=== PATIENT | male | born 1945 | race Caucasian/White ===

== ENCOUNTER 2017-03-13 09:03 | Emergency (ER) | payer MEDICARE, OTHER ==
[2017-03-13 09:13] VITALS: BP 156/80
--- NOTE | 2017-03-13 10:07 | XRAY Preliminary Report ---
Exam: XR WRIST 4 VIEW LT IMPRESSION: 1. Triquetral fracture with adjacent soft tissue swelling. 2. First carpometacarpal joint degenerative changes. [facility] SITE ID: [id number]
--- NOTE | 2017-03-13 10:09 | XRAY Report ---
EXAM: LEFT WRIST RADIOGRAPHY EXAM DATE: 03/13/2017 09:35 AM. CLINICAL HISTORY: Dorsal pain / fall 2 days ago. COMPARISON: None. TECHNIQUE: 4 views. FINDINGS: Bones: Triquetral fracture. Joints: Narrowing of first carpometacarpal joint space with marginal osteophytes. Soft Tissues: Dorsal soft tissue swelling. IMPRESSION: 1. Triquetral fracture with adjacent soft tissue swelling. 2. First carpometacarpal joint degenerative changes. [facility] Referring Provider Line: [phone] SITE ID: [id number]
--- NOTE | 2017-03-13 10:23 | ED Physician Documentation ---
PD HPI UPPER EXT INJURY - Stated complaint Stated Complaint: GLF/HAND PX - Chief complaint Chief Complaint: Ext Problem - History obtained from History obtained from: Patient, Family - History of Present Illness Location: Left, Wrist Type of injury: Fall Where injury occurred: Home Timing - onset: How many days ago (3) Timing - duration: Days (3) Timing - details: Abrupt onset, Still present Improved by: Rest, Immobilization Worsened by: Moving, Palpating Associated symptoms: Swelling. No: Weakness, Numbness, Tingling Contributing factors: Anticoagulated Similar symptoms before: Has not had sx before Recently seen: Not recently seen - Additonal information Additional information: 71-year-old male is visiting his daughter here from [place] and he had a fall 3 days ago onto his outstretched left hand. He did get his elbow into his ribs on that side he did not hit his head he is on Coumadin he did not have loss of consciousness and denies any dizziness nausea or trouble concentrating. He does have increased pain and swelling in his wrist and reduced range of motion. He has been having some difficulty sleeping at night. Review of Systems Constitutional: denies: Fever Respiratory: denies: Cough GI: denies: Vomiting Musculoskeletal: reports: Extremity pain, Joint pain, Extremity swelling, Joint swelling. denies: Neck pain, Back pain Neurologic: denies: Generalized weakness, Focal weakness, Numbness, Difficulty speaking, Confused, Altered mental status, Headache, Head injury, LOC PD PAST MEDICAL HISTORY - Present Medications Home Medications: Ambulatory Orders Medication Instructions Recorded Confirmed HYDROcod/ACETAM 5/325 [[place] 5/325] 1 - 2 ea PO Q6H PRN #15 tablet 03/13/17 Warfarin [Coumadin] 03/13/17 - Allergies Allergies/Adverse Reactions: Allergies Allergy/AdvReac Type Severity Reaction Status Date / Time No Known Drug Allergies Allergy Verified 03/13/17 09:10 - Social History Does the pt smoke?: No Smoking Status: Never smoker PD ED PE NORMAL - Vitals Vital signs reviewed: Yes (Hypertensive) - General General: Alert and oriented X 3, No acute distress, Well developed/nourished - HEENT HEENT: Atraumatic, PERRL, EOMI - Neck Neck: Supple, no meningeal sign - Respiratory Respiratory: No respiratory distress, Other (No significant chest wall tenderness.) - Back Back: No CVA TTP, No spinal TTP - Derm Derm: Normal color, Warm and dry, No rash - Extremities Extremities: Other (There is swelling to the left wrist over the dorsum of the wrist. There is pain to palpation of the anatomic snuffbox and pain over this area with flexion extension of the wrist.) - Neuro Neuro: No motor deficit, No sensory deficit Eye Opening: Spontaneous Motor: Obeys Commands Verbal: Oriented GCS Score: 15 - Psych Psych: Normal mood, Normal affect Results - Vitals Vitals: Vital Signs - 24 hr 03/13/17 09:08 Temperature 36.1 C L Heart Rate 61 Respiratory 16 Rate Blood Pressure 156/80 H O2 Saturation 99 Oxygen O2 Source Room air - Rads (name of study) Left wrist Radiology: Prelim report reviewed (Impression: 1. Triquetral fracture with adjacent soft tissue swelling. 2. First carpometacarpal joint degenerative changes.), EMP read indepedently, See rad report Procedures - Splint (location) wrist Splint applied by: Tech Type of splint: Fiberglass, Volar cock up Other: Patient tolerated well, No complications, Neurovascular intact, Good alignment PD MEDICAL DECISION MAKING - ED course Complexity details: reviewed results, re-evaluated patient, considered differential, d/w patient, d/w family ED course: 71-year-old male with a fall onto his left hand has a triquetral fracture. He is placed into a splint will follow-up at orthopedics. Departure - Departure Disposition: 01 Home, Self Care Clinical Impression: Left wrist fracture Qualifiers: Encounter type: initial encounter Fracture type: closed Qualified Code(s): S62.102A - Fracture of unspecified carpal bone, left wrist, initial encounter for closed fracture Condition: Stable Instructions: ED Fx Wrist General Follow-Up: [facility] [Provider Group] Prescriptions: HYDROcod/ACETAM 5/325 [[place] 5/325] 1 - 2 ea PO Q6H PRN #15 tablet PRN Reason: Pain
== END 2017-03-13 10:51 | disposition home or self-care (01) ==
LOC: ED 09:03
DX: S62.102A Fracture of unspecified carpal bone, left wrist, initial encounter for closed fracture (principal); W18.30XA Fall on same level, unspecified, initial encounter; Y92.009 Unspecified place in unspecified non-institutional (private) residence as the place of occurrence of the external cause; Z79.01 Long term (current) use of anticoagulants
CPT/HCPCS: 29125; 99283

== ENCOUNTER 2020-08-01 11:04 | Outpatient (CLI) | payer MEDICARE, OTHER ==
[2020-08-01 19:50] LABS: INR 3.1 (0.8-1.2); PT - PROTHROMBIN TIME 32.4 secs (9.9-12.6)
== END 2020-08-01 11:05 | disposition home or self-care (01) ==
LOC: LAB.N 11:04
PROVIDERS: ATTEND Pharmacist
DX: Z79.01 Long term (current) use of anticoagulants (principal); I48.0 Paroxysmal atrial fibrillation; I48.92 Unspecified atrial flutter
CPT/HCPCS: 36415; 85610

== ENCOUNTER 2020-08-22 12:04 | Outpatient (CLI) | payer MEDICARE, OTHER | END 2020-08-22 12:05 | disposition home or self-care (01) | LOC: LAB.N 12:04 | PROVIDERS: ATTEND Internal Medicine | DX: I48.0 Paroxysmal atrial fibrillation (principal); I48.92 Unspecified atrial flutter; Z79.01 Long term (current) use of anticoagulants | CPT/HCPCS: 85610 ==

== ENCOUNTER 2020-09-19 09:22 | Outpatient (CLI) | payer MEDICARE, OTHER | END 2020-09-19 09:23 | disposition home or self-care (01) | LOC: LAB.N 09:22 | PROVIDERS: ATTEND Internal Medicine | DX: I48.0 Paroxysmal atrial fibrillation (principal); Z79.01 Long term (current) use of anticoagulants; I48.92 Unspecified atrial flutter | CPT/HCPCS: 36416; 85610 ==

== ENCOUNTER 2020-10-17 12:24 | Outpatient (CLI) | payer MEDICARE, OTHER | END 2020-10-17 12:25 | disposition home or self-care (01) | LOC: LAB.N 12:24 | PROVIDERS: ATTEND Pharmacist | DX: Z79.01 Long term (current) use of anticoagulants (principal); I48.0 Paroxysmal atrial fibrillation; I48.92 Unspecified atrial flutter | CPT/HCPCS: 36416; 85610 ==

== ENCOUNTER 2020-11-14 14:43 | Outpatient (CLI) | payer MEDICARE, OTHER | END 2020-11-14 14:44 | disposition home or self-care (01) | LOC: LAB.N 14:43 | PROVIDERS: ATTEND Pharmacist | DX: Z79.01 Long term (current) use of anticoagulants (principal); I48.0 Paroxysmal atrial fibrillation; I48.92 Unspecified atrial flutter | CPT/HCPCS: 36416; 85610 ==

== ENCOUNTER 2021-01-03 09:40 | Outpatient (CLI) | payer MEDICARE, OTHER | END 2021-01-03 23:59 | disposition home or self-care (01) | LOC: LAB.N 09:40 | PROVIDERS: ATTEND Pharmacist | DX: Z79.01 Long term (current) use of anticoagulants (principal); I48.92 Unspecified atrial flutter; I48.0 Paroxysmal atrial fibrillation | CPT/HCPCS: 85610 ==

== ENCOUNTER 2021-01-04 08:57 | Outpatient (CLI) | payer MEDICARE, OTHER ==
[2021-01-04 12:04] LABS: ALBUMIN 3.7 g/dL (3.2-5.5); CALCIUM 9.7 mg/dL (8.5-10.3); CREATININE 1.2 mg/dL (0.6-1.2); PHOSPHORUS 3.6 mg/dL (2.5-4.6); POTASSIUM 4.7 mmol/L (3.5-5.0)
== END 2021-01-04 08:58 | disposition home or self-care (01) ==
LOC: LAB.N 08:57
PROVIDERS: ATTEND Internal Medicine
DX: R80.9 Proteinuria, unspecified (principal)
CPT/HCPCS: 36415; 80069

== ENCOUNTER 2021-01-24 09:23 | Outpatient (CLI) | payer MEDICARE, OTHER | END 2021-01-24 09:24 | disposition home or self-care (01) | LOC: LAB.N 09:23 | PROVIDERS: ATTEND Pharmacist | DX: Z79.01 Long term (current) use of anticoagulants (principal); I48.0 Paroxysmal atrial fibrillation; I48.92 Unspecified atrial flutter | CPT/HCPCS: 36416; 85610 ==

== ENCOUNTER 2021-02-21 09:56 | Outpatient (CLI) | payer MEDICARE, OTHER | END 2021-02-21 09:57 | disposition home or self-care (01) | LOC: LAB.N 09:56 | PROVIDERS: ATTEND Pharmacist | DX: Z79.01 Long term (current) use of anticoagulants (principal); I48.0 Paroxysmal atrial fibrillation; I48.92 Unspecified atrial flutter | CPT/HCPCS: 36416; 85610 ==

== ENCOUNTER 2021-05-02 11:41 | Outpatient (CLI) | payer MEDICARE, OTHER | END 2021-05-02 11:42 | disposition home or self-care (01) | LOC: LAB.N 11:41 | PROVIDERS: ATTEND Pharmacist | DX: Z79.01 Long term (current) use of anticoagulants (principal); I48.0 Paroxysmal atrial fibrillation; I48.92 Unspecified atrial flutter | CPT/HCPCS: 36416; 85610 ==

== ENCOUNTER 2021-07-04 10:13 | Outpatient (CLI) | payer MEDICARE, OTHER | END 2021-07-04 10:14 | disposition home or self-care (01) | LOC: LAB.N 10:13 | PROVIDERS: ATTEND Pharmacist | DX: I48.0 Paroxysmal atrial fibrillation (principal); I48.92 Unspecified atrial flutter; Z79.01 Long term (current) use of anticoagulants | CPT/HCPCS: 36416; 85610 ==

== ENCOUNTER 2021-08-29 10:47 | Outpatient (CLI) | payer MEDICARE, OTHER | END 2021-08-29 10:48 | disposition home or self-care (01) | LOC: LAB.N 10:47 | PROVIDERS: ATTEND Pharmacist | DX: Z79.01 Long term (current) use of anticoagulants (principal); I48.0 Paroxysmal atrial fibrillation; I48.92 Unspecified atrial flutter | CPT/HCPCS: 36416; 85610 ==

== ENCOUNTER 2021-09-22 15:10 | Outpatient (CLI) | payer MEDICARE, OTHER | END 2021-09-22 15:11 | disposition home or self-care (01) | LOC: LAB.N 15:10 | PROVIDERS: ATTEND Pharmacist | DX: Z79.01 Long term (current) use of anticoagulants (principal); I48.0 Paroxysmal atrial fibrillation; I48.92 Unspecified atrial flutter | CPT/HCPCS: 36416; 85610 ==

== ENCOUNTER 2021-10-06 08:00 | Outpatient (CLI) | payer MEDICARE, OTHER | END 2021-10-06 23:59 | disposition home or self-care (01) | LOC: LAB.N 08:00 | PROVIDERS: ATTEND Pharmacist | DX: I48.0 Paroxysmal atrial fibrillation (principal); I48.92 Unspecified atrial flutter; Z79.01 Long term (current) use of anticoagulants | CPT/HCPCS: 36416; 85610 ==

== ENCOUNTER 2021-10-27 09:24 | Outpatient (CLI) | payer MEDICARE, OTHER | END 2021-10-27 09:25 | disposition home or self-care (01) | LOC: LAB.N 09:24 | PROVIDERS: ATTEND Pharmacist | DX: I48.0 Paroxysmal atrial fibrillation (principal); I48.92 Unspecified atrial flutter; Z79.01 Long term (current) use of anticoagulants | CPT/HCPCS: 36416; 85610 ==

== ENCOUNTER 2022-02-01 12:17 | Outpatient (CLI) | payer MEDICARE, OTHER | END 2022-02-01 12:18 | disposition home or self-care (01) | LOC: LAB.N 12:17 | PROVIDERS: ATTEND Internal Medicine | DX: Z79.01 Long term (current) use of anticoagulants (principal); I48.0 Paroxysmal atrial fibrillation; I48.92 Unspecified atrial flutter | CPT/HCPCS: 85610 ==

== ENCOUNTER 2022-03-16 11:15 | Outpatient (CLI) | payer MEDICARE, OTHER | END 2022-03-16 11:16 | disposition home or self-care (01) | LOC: LAB.N 11:15 | PROVIDERS: ATTEND Pharmacist | DX: Z79.01 Long term (current) use of anticoagulants (principal); I48.0 Paroxysmal atrial fibrillation; I48.92 Unspecified atrial flutter | CPT/HCPCS: 36416; 85610 ==

== ENCOUNTER 2022-04-26 08:00 | Outpatient (CLI) | payer MEDICARE, OTHER | END 2022-04-26 23:59 | disposition home or self-care (01) | LOC: LAB.N 08:00 | PROVIDERS: ATTEND Pharmacist | DX: Z79.01 Long term (current) use of anticoagulants (principal); I48.0 Paroxysmal atrial fibrillation; I48.92 Unspecified atrial flutter | CPT/HCPCS: 36416; 85610 ==

== ENCOUNTER 2022-05-21 12:10 | Outpatient (CLI) | payer MEDICARE, OTHER | END 2022-05-21 12:11 | disposition home or self-care (01) | LOC: LAB.N 12:10 | PROVIDERS: ATTEND Pharmacist | DX: Z79.01 Long term (current) use of anticoagulants (principal); I48.0 Paroxysmal atrial fibrillation; I48.92 Unspecified atrial flutter | CPT/HCPCS: 36416; 85610 ==

== ENCOUNTER 2022-07-28 09:30 | Emergency (ER) | payer MEDICARE, OTHER ==
--- NOTE | 2022-07-28 09:35 | ED Physician Documentation ---
PD HPI URI - Stated complaint Stated Complaint: SOA/COUGH/BODY PX - History obtained from History obtained from: Patient - History of Present Illness Timing - onset: How many days ago (5 days of marked fatigue, aches, cough and dypsnea/wheeze. Poor appetite. Had started with mild symptoms the day or two prior. he flew home from [facility], was on tour group (mostly bus) with for [address] [place] [facility].) Timing duration: Days (5-7) Timing details: Abrupt onset, Still present Associated symptoms: Fever, Chills, Nasal congestion, Productive cough, Dyspnea, Bilateral edema (did note bilateral legs edema while on trip, he presumed from the increased salt in diet and legs downward in plane and bus. He states he has lost most of the edema since returning to home over the past several days. but has still had increased dyspnea and cough.). No: Sore throat, Chest pain, NVD Contributing factors: Travel. No: Sick contact (his is not sick), Unimmunized Improves by: No: Rest Worsened by: Activity Similar symptoms before: Has not had sx before Review of Systems Constitutional: reports: Fever (initial 2 days), Chills, Myalgias (difusely), Fatigue Nose: reports: Rhinorrhea / runny nose, Congestion Throat: denies: Sore throat Cardiac: reports: Pedal edema. denies: Chest pain / pressure, Palpitations, Calf pain Respiratory: reports: Dyspnea, Cough, Wheezing GI: reports: Nausea. denies: Abdominal Pain, Vomiting, Constipation, Diarrhea : reports: Frequency. denies: Dysuria PD PAST MEDICAL HISTORY - Past Medical History Cardiovascular: Arrhythmia Respiratory: COPD Neuro: None Endocrine/Autoimmune: None GI: None Musculoskeletal: Gout - Past Surgical History Cardiovascular: Pacemaker - Present Medications Home Medications: Ambulatory Orders Medication Instructions Recorded Confirmed Albuterol Sulf [Ventolin Hfa 2 - 3 puffs INH Q4HR PRN #1 each 07/28/22 Inhaler] Amox/Clav 875/125 [Augmentin] 1 each PO BID #10 tablet 07/28/22 Ascorbic Acid [Vitamin C] 500 mg ORAL QPM 07/28/22 07/28/22 Aspirin Chewable [[place] 81 mg PO DAILY 07/28/22 07/28/22 Aspirin] Benzonatate [Tessalon] 100 mg PO TID PRN #20 cap 07/28/22 Cholecalciferol [Vitamin D3] 1,000 unit PO DAILY 07/28/22 07/28/22 Cyanocobalamin [Vitamin B-12] 500 mcg PO DAILY 07/28/22 07/28/22 Empagliflozin [Jardiance] 10 mg PO DAILY 07/28/22 07/28/22 Ferrous Sulfate [Feosol] 325 mg PO DAILY 07/28/22 07/28/22 Furosemide [Lasix] 20 mg PO BID 07/28/22 07/28/22 Insulin Degludec [Tresiba 70 units SQ DAILY 07/28/22 07/28/22 Flextouch U-200] Inulin/Cholecalciferol (D3) [Fiber 2 each PO DAILY 07/28/22 07/28/22 Gummies-Vitamin D3] Levothyroxine [Synthroid] 200 mcg PO QDAC 07/28/22 07/28/22 Liraglutide [Victoza 2-Stevie] 1.8 mg SQ QPM 07/28/22 07/28/22 Multivit-Min/FA/Lycopen/Lutein 1 each PO DAILY 07/28/22 07/28/22 [Centrum Silver Men Tablet] [place]-3S/Dha/Epa/Fish Oil/D3 1 each PO BID 07/28/22 07/28/22 [Ogmpq-9-Jdaf Oil-Vit D3 Sftgl] Rosuvastatin Calcium [Crestor] 40 mg PO QPM 07/28/22 07/28/22 Semaglutide [Ozempic] 1 mg SQ ONCE 07/28/22 07/28/22 Sotalol HCl [Betapace AF] 160 mg PO DAILY 07/28/22 07/28/22 Tamsulosin [Flomax] 0.4 mg PO DAILY 07/28/22 07/28/22 Tiotropium [place] [Spiriva] 1 puffs INH DAILY 07/28/22 07/28/22 Ubidecarenone [Coenzyme Q10] 300 mg PO DAILY 07/28/22 07/28/22 Varenicline Tartrate 1 mg PO BID 07/28/22 07/28/22 Warfarin [Coumadin] 2.5 mg PO DAILY 07/28/22 07/28/22 Warfarin [Coumadin] 5 mg PO DAILY 07/28/22 07/28/22 acetaZOLAMIDE [Acetazolamide] 125 mg PO BID 07/28/22 07/28/22 allopurinoL [Zyloprim] 100 mg PO BID 07/28/22 07/28/22 dexAMETHasone [Decadron] 4 mg PO DAILY #5 tablet 07/28/22 dilTIAZem HCL [Diltiazem 24Hr ER 240 mg PO DAILY 07/28/22 07/28/22 (Xr)] gemfibroziL [Lopid] 600 mg PO BID 07/28/22 07/28/22 metFORMIN [Glucophage] 1,000 mg PO DAILY 07/28/22 07/28/22 - Allergies Allergies/Adverse Reactions: Allergies Allergy/AdvReac Type Severity Reaction Status Date / Time No Known Drug Allergies Allergy Verified 04/22/18 12:29 - Social History Does the pt smoke?: No Smoking Status: Never smoker PD ED PE NORMAL - Vitals Vital signs reviewed: Yes - General General: Alert and oriented X 3, No acute distress, Well developed/nourished - HEENT HEENT: Pharynx benign - Neck Neck: Supple, no meningeal sign, No adenopathy - Cardiac Cardiac: RRR, No murmur - Respiratory Respiratory: No: Clear bilaterally (diffuse exp wheezing with some prolonged tidal volume. Coughing with deep breaths. ) - Abdomen Abdomen: Soft, Non tender - Derm Derm: Normal color, Warm and dry - Extremities Extremities: Normal ROM s pain, No calf tenderness / cord, Other (minimal edema in lower shins/ankles. ) - Neuro Neuro: Alert and oriented X 3, No motor deficit, Normal speech Results - Vitals Vitals: Vital Signs - 24 hr 07/28/22 07/28/22 07/28/22 09:32 09:48 10:00 Temperature 36.5 C 36.5 C Heart Rate 60 60 60 Respiratory 16 16 12 Rate Blood Pressure 167/74 H 167/74 H 126/60 O2 Saturation 92 92 93 07/28/22 07/28/22 10:24 12:00 Temperature 36.5 C Heart Rate 66 68 Respiratory 20 18 Rate Blood Pressure 124/60 O2 Saturation 94 Oxygen O2 Source Room air - Labs Labs: Laboratory Tests 07/28/22 07/28/22 07/28/22 10:21 10:21 10:21 WBC 7.8 RBC 4.24 L Hgb 11.7 L Hct 39.2 L MCV 92.5 MCH 27.6 MCHC 29.8 L RDW 16.6 H Plt Count 244 MPV 9.2 Neut # (Auto) 5.7 Lymph # (Auto) 0.5 L [place] # (Auto) 1.5 H Eos # (Auto) 0.1 Baso # (Auto) 0.0 Absolute Nucleated RBC 0.00 Nucleated RBC % 0.0 Sodium 137 Potassium 4.3 Chloride 101 Carbon Dioxide 27 Anion Gap 9.0 BUN 21 H Creatinine 1.2 Estimated GFR (MDRD) 59 L Glucose 110 H Calcium 9.2 Magnesium 2.0 Total Bilirubin 0.2 AST 22 ALT 24 Alkaline Phosphatase 60 B-Natriuretic Peptide 767 H Total Protein 7.0 Albumin 2.9 L Globulin 4.1 Albumin/Globulin Ratio 0.7 L Lipase 35 - Rads (name of study) chest xray Relevant Findings:: Prelim report reviewed, EMP independent interpretation of test (pacer noted. No notable chF nor infiltrates. ), See rad report PD Medical Decision Making - ED course Complexity details: reviewed results (chest xray is without infiltrates. No noted CHF. Pacemaker noted in position. Radiology report concurs. Hgb 11.7, only mild anemic. BNP 767 without prior labs. Moderate up, but CXR clear. could be some component of CHF as well, but seems predominately bronchitis/cOPD. ), considered differential (has had cough and increased dyspnea/wheezing with current URI symptoms. history of mild COPD. seems to be a flare of that. Not apparent CHF. Had been traveling and noted some fluid weight gain that has mostly resolved. No calf pain/tender. ), d/w patient ED course: Albuterol nebulizer with good improvement. Sats are still somewhat low at 93-95% which he states is near his baseline at home. He is not on home oxygen. He does see a worm packer. Given some COPD with wheezing and dyspnea, in setting of progressive cough and sputum, consider bacterial atop viral URI vs just viral. Can treat with MDI as he only has Spireva at home, along with short course steroids, Tessalon (should not affect prostate) and Augmentin. Departure - Departure Disposition: 01 Home, Self Care Clinical Impression: Mild chronic obstructive pulmonary disease Upper respiratory infection Qualifiers: URI type: unspecified URI Qualified Code(s): J06.9 - Acute upper respiratory infection, unspecified Bronchitis, acute Qualifiers: Bronchitis organism: unspecified organism Qualified Code(s): J20.9 - Acute bronchitis, unspecified Condition: Stable Record reviewed to determine appropriate education?: Yes Follow-Up: FUAD WONG [Primary Care Provider] - Prescriptions: Albuterol Sulf [Ventolin Hfa Inhaler] 2 - 3 puffs INH Q4HR PRN #1 each PRN Reason: Shortness Of Air/Wheezing Amox/Clav 875/125 [Augmentin] 1 each PO BID #10 tablet dexAMETHasone [Decadron] 4 mg PO DAILY #5 tablet Benzonatate [Tessalon] 100 mg PO TID PRN #20 cap PRN Reason: Cough Comments: Your chest x-ray is clear without any signs of pneumonia nor notable congestive heart failure. You may have some element of fluid buildup in the lungs but does not look to be significant. I presume most of your symptoms relate to upper respiratory infection now into the bronchioles. The underlying process most likely is viral but consideration would be for bacterial involvement as well now. I would suggest continuing with your normal Spiriva and add albuterol 2 to 3 puffs 4 times daily for the next 7 to 10 days. Also add Decadron steroid anti-inflammatory to help with bronchial inflammation. This results from the infection as well as flareup of your underlying COPD. Add benzonatate if needed for cough. Also Augmentin antibiotic twice daily for 5 days for concern of bacterial as well. I sent your prescriptions to [facility] pharmacy. Recheck if not improving well over the next several days and resolved by 4 to 5 days. Return to the ER if worsening. Your oxygenation level was slightly low at 93 to 94% but not low enough to need extra oxygen or hospitalization at this point. Discharge Date/Time: 07/28/22 12:10
[2022-07-28] MEDS ORDERED: ALBUTEROL NEB 2.5 MG/3 ML INH STA (10:12)
[2022-07-28] MEDS ORDERED: DEXAMETHASONE 10 MG/ML VIAL PO STA (10:12)
[2022-07-28] MEDS ORDERED: BENZONATATE 100 MG CAPSULE PO STA (10:12)
[2022-07-28] MEDS ORDERED: CHERRY SYRUP 10 ML UDC PO ONE (10:12)
[2022-07-28] MEDS ORDERED: DOCUSATE SODIUM 100 MG CAPSULE PO STA (10:13)
[2022-07-28 10:26] LABS: BASOPHILS % (AUTO) 0.5 %; EOSINOPHILS # (AUTO) 0.1 10^3/uL (0.0-0.7); EOSINOPHILS % (AUTO) 1.4 %; HCT - HEMATOCRIT 39.2 % (42.0-52.0); HGB - HEMOGLOBIN 11.7 g/dL (14.0-18.0); LYMPHOCYTES # (AUTO) 0.5 10^3/uL (1.5-3.5); LYMPHOCYTES % (AUTO) 5.7 %; MEAN CORPUSCULAR HEMOGLOBIN 27.6 pg (27.0-31.0); MEAN CORPUSCULAR HGB CONC 29.8 g/dL (32.0-36.0); MEAN CORPUSCULAR VOLUME 92.5 fL (80.0-94.0); MEAN PLATELET VOLUME 9.2 fL (7.4-11.4); MONOCYTES # (AUTO) 1.5 10^3/uL (0.0-1.0); MONOCYTES % (AUTO) 18.9 %; NEUTROPHILS # (AUTO) 5.7 10^3/uL (1.5-6.6); NEUTROPHILS % (AUTO) 73.2 %; PLT - PLATELET COUNT 244 10^3/uL (130-450); RED BLOOD COUNT 4.24 10^6/uL (4.70-6.10); RED CELL DISTRIBUTION WIDTH 16.6 % (12.0-15.0); WHITE BLOOD COUNT 7.8 x10^3/uL (4.8-10.8)
--- NOTE | 2022-07-28 10:42 | XRAY Report ---
PROCEDURE: Chest 1 View X-Ray INDICATIONS: chest pain TECHNIQUE: One view of the chest was acquired. COMPARISON: None. FINDINGS: Surgical changes and devices: A pacer device can be seen. Lungs and pleura: No pleural effusions or pneumothorax. Lungs are clear. Mediastinum: Mediastinal contours appear normal. Heart size is normal. Calcification is seen of the aortic arch. Bones and chest wall: No suspicious bony lesions. Age-appropriate degenerative changes are seen. Overlying soft tissues appear unremarkable. IMPRESSION: Portable chest within normal limits for age. Reviewed by: Andre Sandoval MD on 07/28/2022 9:41 AM FAITH Approved by: Andre Sandoval MD on 07/28/2022 9:41 AM FAITH Station ID: [id number]
[2022-07-28 10:55] LABS: ALBUMIN 2.9 g/dL (3.2-5.5); ALBUMIN/GLOBULIN RATIO 0.7 (1.0-2.2); BILIRUBIN,TOTAL 0.2 mg/dL (0.2-1.0); CALCIUM 9.2 mg/dL (8.5-10.3); CREATININE 1.2 mg/dL (0.6-1.2); POTASSIUM 4.3 mmol/L (3.5-5.0)
[2022-07-28] MEDS ORDERED: AMOX/CLAV 875 MG/125 MG TABLET PO STA (11:54)
[2022-07-28 12:10] VITALS: BP 124/60
== END 2022-07-28 12:10 | disposition home or self-care (01) ==
LOC: ED 09:30
DX: J06.9 Acute upper respiratory infection, unspecified (principal); J20.9 Acute bronchitis, unspecified; J44.9 Chronic obstructive pulmonary disease, unspecified
CPT/HCPCS: 36415; 71045; 80053; 83690; 83735; 83880; 85025; 94640; 99284; A9270

== ENCOUNTER 2022-07-31 10:49 | Outpatient (CLI) | payer MEDICARE, OTHER ==
[2022-07-31 18:28] LABS: PT - PROTHROMBIN TIME 46.9 secs (9.9-12.6)
[2022-07-31 19:16] LABS: INR 4.6 (0.8-1.2)
== END 2022-07-31 10:50 | disposition home or self-care (01) ==
LOC: LAB.N 10:49
PROVIDERS: ATTEND Internal Medicine Cardiovascular Disease
DX: Z79.01 Long term (current) use of anticoagulants (principal); I48.0 Paroxysmal atrial fibrillation; I48.92 Unspecified atrial flutter
CPT/HCPCS: 36415; 36416; 85610

== ENCOUNTER 2022-08-03 11:48 | Outpatient (CLI) | payer MEDICARE, OTHER | END 2022-08-03 11:49 | disposition home or self-care (01) | LOC: LAB.N 11:48 | PROVIDERS: ATTEND Internal Medicine Cardiovascular Disease | DX: Z79.01 Long term (current) use of anticoagulants (principal); I48.0 Paroxysmal atrial fibrillation; I48.92 Unspecified atrial flutter | CPT/HCPCS: 36416; 85610 ==

== ENCOUNTER 2022-08-07 09:57 | Outpatient (CLI) | payer MEDICARE, OTHER | END 2022-08-07 09:58 | disposition home or self-care (01) | LOC: LAB.N 09:57 | PROVIDERS: ATTEND Internal Medicine Cardiovascular Disease | DX: Z79.01 Long term (current) use of anticoagulants (principal); I48.0 Paroxysmal atrial fibrillation; I48.92 Unspecified atrial flutter | CPT/HCPCS: 36416; 85610 ==

== ENCOUNTER 2022-08-27 11:50 | Outpatient (CLI) | payer MEDICARE, OTHER | END 2022-08-27 11:51 | disposition home or self-care (01) | LOC: LAB.N 11:50 | PROVIDERS: ATTEND Internal Medicine Cardiovascular Disease | DX: Z79.01 Long term (current) use of anticoagulants (principal); I48.0 Paroxysmal atrial fibrillation; I48.92 Unspecified atrial flutter | CPT/HCPCS: 36416; 85610 ==

== ENCOUNTER 2022-09-26 12:19 | Outpatient (CLI) | payer MEDICARE, OTHER | END 2022-09-26 12:20 | disposition home or self-care (01) | LOC: LAB.N 12:19 | PROVIDERS: ATTEND Internal Medicine Cardiovascular Disease | DX: Z79.01 Long term (current) use of anticoagulants (principal); I48.0 Paroxysmal atrial fibrillation; I48.92 Unspecified atrial flutter | CPT/HCPCS: 36416; 85610 ==

== ENCOUNTER 2022-10-05 11:23 | Outpatient (CLI) | payer MEDICARE, OTHER | END 2022-10-05 11:24 | disposition home or self-care (01) | LOC: LAB.N 11:23 | PROVIDERS: ATTEND Internal Medicine Cardiovascular Disease | DX: Z79.01 Long term (current) use of anticoagulants (principal); I48.0 Paroxysmal atrial fibrillation; I48.92 Unspecified atrial flutter | CPT/HCPCS: 36416; 85610 ==

== ENCOUNTER 2022-10-22 11:20 | Outpatient (CLI) | payer MEDICARE, OTHER | END 2022-10-22 11:21 | disposition home or self-care (01) | LOC: LAB.N 11:20 | PROVIDERS: ATTEND Internal Medicine Cardiovascular Disease | DX: Z79.01 Long term (current) use of anticoagulants (principal); I48.0 Paroxysmal atrial fibrillation; I48.92 Unspecified atrial flutter | CPT/HCPCS: 36416; 85610 ==

== ENCOUNTER 2022-11-09 10:26 | Outpatient (CLI) | payer MEDICARE, OTHER | END 2022-11-09 10:27 | disposition home or self-care (01) | LOC: LAB.N 10:26 | PROVIDERS: ATTEND Internal Medicine Cardiovascular Disease | DX: Z79.01 Long term (current) use of anticoagulants (principal); I48.0 Paroxysmal atrial fibrillation; I48.92 Unspecified atrial flutter | CPT/HCPCS: 36416; 85610 ==

== ENCOUNTER 2022-11-22 09:59 | Outpatient (CLI) | payer MEDICARE, OTHER | END 2022-11-22 10:00 | disposition home or self-care (01) | LOC: LAB.N 09:59 | PROVIDERS: ATTEND Internal Medicine Cardiovascular Disease | DX: Z79.01 Long term (current) use of anticoagulants (principal); I48.0 Paroxysmal atrial fibrillation; I48.92 Unspecified atrial flutter | CPT/HCPCS: 36416; 85610 ==

== ENCOUNTER 2022-11-29 10:42 | Outpatient (CLI) | payer MEDICARE, OTHER | END 2022-11-29 10:43 | disposition home or self-care (01) | LOC: LAB.N 10:42 | PROVIDERS: ATTEND Internal Medicine Cardiovascular Disease | DX: Z79.01 Long term (current) use of anticoagulants (principal); I48.0 Paroxysmal atrial fibrillation; I48.92 Unspecified atrial flutter | CPT/HCPCS: 36416; 85610 ==

== ENCOUNTER 2022-12-04 08:58 | Outpatient (CLI) | payer MEDICARE, OTHER | END 2022-12-04 08:59 | disposition home or self-care (01) | LOC: LAB.N 08:58 | PROVIDERS: ATTEND Internal Medicine Cardiovascular Disease | DX: Z79.01 Long term (current) use of anticoagulants (principal); I48.0 Paroxysmal atrial fibrillation; I48.92 Unspecified atrial flutter | CPT/HCPCS: 36416; 85610 ==

== ENCOUNTER 2022-12-14 12:22 | Outpatient (CLI) | payer MEDICARE, OTHER | END 2022-12-14 12:23 | disposition home or self-care (01) | LOC: LAB.N 12:22 | PROVIDERS: ATTEND Internal Medicine Cardiovascular Disease | DX: Z79.01 Long term (current) use of anticoagulants (principal); I48.0 Paroxysmal atrial fibrillation; I48.92 Unspecified atrial flutter | CPT/HCPCS: 36416; 85610 ==

== ENCOUNTER 2022-12-28 11:17 | Outpatient (CLI) | payer MEDICARE, OTHER | END 2022-12-28 11:18 | disposition home or self-care (01) | LOC: LAB.N 11:17 | PROVIDERS: ATTEND Internal Medicine Cardiovascular Disease | DX: Z79.01 Long term (current) use of anticoagulants (principal); I48.0 Paroxysmal atrial fibrillation; I48.92 Unspecified atrial flutter | CPT/HCPCS: 36416; 85610 ==

== ENCOUNTER 2023-01-14 10:34 | Outpatient (CLI) | payer MEDICARE, OTHER | END 2023-01-14 10:35 | disposition home or self-care (01) | LOC: LAB.N 10:34 | PROVIDERS: ATTEND Internal Medicine Cardiovascular Disease | DX: Z79.01 Long term (current) use of anticoagulants (principal); I48.0 Paroxysmal atrial fibrillation; I48.92 Unspecified atrial flutter | CPT/HCPCS: 36416; 85610 ==

== ENCOUNTER 2023-02-11 08:00 | Outpatient (CLI) | payer MEDICARE, OTHER | END 2023-02-11 23:59 | disposition home or self-care (01) | LOC: LAB.N 08:00 | PROVIDERS: ATTEND Internal Medicine Cardiovascular Disease | DX: Z79.01 Long term (current) use of anticoagulants (principal); I48.0 Paroxysmal atrial fibrillation; I48.92 Unspecified atrial flutter | CPT/HCPCS: 36416; 85610 ==

== ENCOUNTER 2023-03-18 09:51 | Outpatient (CLI) | payer MEDICARE, OTHER | END 2023-03-18 09:52 | disposition home or self-care (01) | LOC: LAB.N 09:51 | PROVIDERS: ATTEND Internal Medicine Cardiovascular Disease | DX: Z79.01 Long term (current) use of anticoagulants (principal); I48.0 Paroxysmal atrial fibrillation; I48.92 Unspecified atrial flutter | CPT/HCPCS: 36416; 85610 ==

== ENCOUNTER 2023-04-03 09:47 | Outpatient (CLI) | payer MEDICARE, OTHER | END 2023-04-03 09:48 | disposition home or self-care (01) | LOC: LAB.N 09:47 | PROVIDERS: ATTEND Internal Medicine Cardiovascular Disease | DX: Z79.01 Long term (current) use of anticoagulants (principal); I48.0 Paroxysmal atrial fibrillation; I48.92 Unspecified atrial flutter | CPT/HCPCS: 36416; 85610 ==

== ENCOUNTER 2023-05-22 09:33 | Outpatient (CLI) | payer MEDICARE, OTHER | END 2023-05-22 09:34 | disposition home or self-care (01) | LOC: LAB.N 09:33 | PROVIDERS: ATTEND Internal Medicine Cardiovascular Disease | DX: I48.0 Paroxysmal atrial fibrillation (principal); I48.92 Unspecified atrial flutter; Z79.01 Long term (current) use of anticoagulants | CPT/HCPCS: 36416; 85610 ==

== ENCOUNTER 2023-06-10 10:32 | Outpatient (CLI) | payer MEDICARE, OTHER | END 2023-06-10 10:33 | disposition home or self-care (01) | LOC: LAB.N 10:32 | PROVIDERS: ATTEND Internal Medicine Cardiovascular Disease | DX: I48.0 Paroxysmal atrial fibrillation (principal); I48.92 Unspecified atrial flutter; Z79.01 Long term (current) use of anticoagulants | CPT/HCPCS: 36416; 85610 ==

== ENCOUNTER 2023-06-24 11:58 | Outpatient (CLI) | payer MEDICARE, OTHER ==
[2023-06-24 17:53] LABS: PT - PROTHROMBIN TIME 106.1 secs (9.9-12.6)
[2023-06-24 18:53] LABS: INR > 10.0 (0.8-1.2)
== END 2023-06-24 11:59 | disposition home or self-care (01) ==
LOC: LAB.N 11:58
PROVIDERS: ATTEND Internal Medicine Cardiovascular Disease
DX: I48.0 Paroxysmal atrial fibrillation (principal); I48.92 Unspecified atrial flutter; Z79.01 Long term (current) use of anticoagulants
CPT/HCPCS: 36415; 36416; 85610

== ENCOUNTER 2023-07-26 11:13 | Outpatient (CLI) | payer MEDICARE, OTHER ==
[2023-07-26 18:49] LABS: ALBUMIN 3.8 g/dL (3.2-5.5); CALCIUM 9.5 mg/dL (8.5-10.3); CREATININE 2.7 mg/dL (0.6-1.3); POTASSIUM 3.8 mmol/L (3.5-4.5)
== END 2023-07-26 11:14 | disposition home or self-care (01) ==
LOC: LAB.N 11:13
PROVIDERS: ATTEND Internal Medicine
DX: I48.91 Unspecified atrial fibrillation (principal); I48.92 Unspecified atrial flutter; Z86.718 Personal history of other venous thrombosis and embolism; D68.69 Other thrombophilia; N18.30 Chronic kidney disease, stage 3 unspecified
CPT/HCPCS: 36415; 80069

== ENCOUNTER 2023-08-09 11:00 | Outpatient (CLI) | payer MEDICARE ==
[2023-08-09 18:33] LABS: ALBUMIN 3.6 g/dL (3.2-5.5); CALCIUM 10.1 mg/dL (8.5-10.3); CREATININE 2.3 mg/dL (0.6-1.3); PHOSPHORUS 3.9 mg/dL (2.5-5.0)
== END 2023-08-09 11:01 | disposition home or self-care (01) ==
LOC: LAB.N 11:00
PROVIDERS: ATTEND Internal Medicine
DX: N17.9 Acute kidney failure, unspecified (principal); N18.30 Chronic kidney disease, stage 3 unspecified; I48.91 Unspecified atrial fibrillation; Z86.718 Personal history of other venous thrombosis and embolism; D68.69 Other thrombophilia
CPT/HCPCS: 36415; 80069

== ENCOUNTER 2023-08-23 13:01 | Outpatient (CLI) | payer MEDICARE ==
[2023-08-23 18:50] LABS: ALBUMIN 3.8 g/dL (3.2-5.5); CALCIUM 10.1 mg/dL (8.5-10.3); CREATININE 2.1 mg/dL (0.6-1.3); PHOSPHORUS 3.4 mg/dL (2.5-5.0); POTASSIUM 3.8 mmol/L (3.5-4.5)
== END 2023-08-23 13:02 | disposition home or self-care (01) ==
LOC: LAB.N 13:01
PROVIDERS: ATTEND Internal Medicine
DX: N17.9 Acute kidney failure, unspecified (principal); N18.30 Chronic kidney disease, stage 3 unspecified; I48.91 Unspecified atrial fibrillation; Z86.718 Personal history of other venous thrombosis and embolism; D68.69 Other thrombophilia
CPT/HCPCS: 36415; 80069

== ENCOUNTER 2023-08-30 10:47 | Outpatient (CLI) | payer MEDICARE ==
[2023-08-30 12:09] LABS: ALBUMIN 3.8 g/dL (3.2-5.5); CALCIUM 9.4 mg/dL (8.5-10.3); PHOSPHORUS 3.5 mg/dL (2.5-5.0); POTASSIUM 3.8 mmol/L (3.5-4.5)
== END 2023-08-30 10:48 | disposition home or self-care (01) ==
LOC: LAB.N 10:47
PROVIDERS: ATTEND Internal Medicine
DX: N17.9 Acute kidney failure, unspecified (principal); N18.30 Chronic kidney disease, stage 3 unspecified; I48.91 Unspecified atrial fibrillation; Z86.718 Personal history of other venous thrombosis and embolism; D68.69 Other thrombophilia
CPT/HCPCS: 36415; 80069

== ENCOUNTER 2023-09-13 18:00 | Outpatient (CLI) | payer MEDICARE ==
[2023-09-13 21:21] LABS: ALBUMIN 3.8 g/dL (3.2-5.5); CALCIUM 9.7 mg/dL (8.5-10.3); CREATININE 1.9 mg/dL (0.6-1.3); PHOSPHORUS 3.5 mg/dL (2.5-5.0); POTASSIUM 3.5 mmol/L (3.5-4.5)
== END 2023-09-13 18:01 | disposition home or self-care (01) ==
LOC: LAB.N 18:00
PROVIDERS: ATTEND Internal Medicine
DX: N17.9 Acute kidney failure, unspecified (principal); N18.30 Chronic kidney disease, stage 3 unspecified; I48.91 Unspecified atrial fibrillation; Z86.718 Personal history of other venous thrombosis and embolism; D68.69 Other thrombophilia
CPT/HCPCS: 36415; 80069

== ENCOUNTER 2023-10-08 12:45 | Outpatient (CLI) | payer MEDICARE, OTHER | END 2023-10-08 12:46 | disposition home or self-care (01) | LOC: LAB.N 12:45 | PROVIDERS: ATTEND Internal Medicine | DX: Z53.9 Procedure and treatment not carried out, unspecified reason (principal) | CPT/HCPCS: 36415; 80069; 82607; 82728; 83540; 83880; 84466; 85025 ==

== ENCOUNTER 2023-10-10 17:33 | Outpatient (CLI) | payer MEDICARE, OTHER ==
[2023-10-10 21:27] LABS: BASOPHILS % (AUTO) 0.4 %; EOSINOPHILS # (AUTO) 0.2 10^3/uL (0.0-0.7); EOSINOPHILS % (AUTO) 1.8 %; HGB - HEMOGLOBIN 7.6 g/dL (14.0-18.0); LYMPHOCYTES # (AUTO) 0.9 10^3/uL (1.5-3.5); LYMPHOCYTES % (AUTO) 9.4 %; MEAN CORPUSCULAR HEMOGLOBIN 27.7 pg (27.0-31.0); MEAN CORPUSCULAR HGB CONC 30.4 g/dL (32.0-36.0); MEAN CORPUSCULAR VOLUME 91.2 fL (80.0-94.0); MEAN PLATELET VOLUME 10.6 fL (7.4-11.4); MONOCYTES # (AUTO) 0.9 10^3/uL (0.0-1.0); MONOCYTES % (AUTO) 9.2 %; NEUTROPHILS # (AUTO) 7.4 10^3/uL (1.5-6.6); NEUTROPHILS % (AUTO) 78.8 %; PLT - PLATELET COUNT 218 10^3/uL (130-450); RED BLOOD COUNT 2.74 10^6/uL (4.70-6.10); RED CELL DISTRIBUTION WIDTH 16.6 % (12.0-15.0); WHITE BLOOD COUNT 9.4 x10^3/uL (4.8-10.8)
[2023-10-10 21:41] LABS: ALBUMIN 3.7 g/dL (3.2-5.5); CALCIUM 9.3 mg/dL (8.5-10.3); CREATININE 2.2 mg/dL (0.6-1.3); PHOSPHORUS 4.4 mg/dL (2.5-5.0)
[2023-10-10 22:09] LABS: FERRITIN 84.1 ng/mL (23.9-336.2)
== END 2023-10-10 17:34 | disposition home or self-care (01) ==
LOC: LAB.N 17:33
PROVIDERS: ATTEND Internal Medicine
DX: N17.9 Acute kidney failure, unspecified (principal); N18.30 Chronic kidney disease, stage 3 unspecified; I48.91 Unspecified atrial fibrillation; Z86.718 Personal history of other venous thrombosis and embolism; D68.69 Other thrombophilia; D64.9 Anemia, unspecified
CPT/HCPCS: 36415; 80069; 82607; 82728; 83540; 83880; 84466; 85025

== ENCOUNTER 2023-10-21 14:59 | Outpatient (CLI) | payer MEDICARE, OTHER ==
[2023-10-21 18:19] LABS: ALBUMIN 3.9 g/dL (3.2-5.5); CALCIUM 9.5 mg/dL (8.5-10.3); CREATININE 2.3 mg/dL (0.6-1.3); PHOSPHORUS 4.2 mg/dL (2.5-5.0); POTASSIUM 4.4 mmol/L (3.5-4.5)
[2023-10-21 18:21] LABS: BASOPHILS # (AUTO) 0.1 10^3/uL (0.0-0.1); BASOPHILS % (AUTO) 0.6 %; EOSINOPHILS # (AUTO) 0.2 10^3/uL (0.0-0.7); EOSINOPHILS % (AUTO) 2.3 %; HCT - HEMATOCRIT 25.9 % (42.0-52.0); HGB - HEMOGLOBIN 7.7 g/dL (14.0-18.0); LYMPHOCYTES # (AUTO) 0.6 10^3/uL (1.5-3.5); LYMPHOCYTES % (AUTO) 7.9 %; MEAN CORPUSCULAR HEMOGLOBIN 27.6 pg (27.0-31.0); MEAN CORPUSCULAR HGB CONC 29.7 g/dL (32.0-36.0); MEAN CORPUSCULAR VOLUME 92.8 fL (80.0-94.0); MEAN PLATELET VOLUME 10.7 fL (7.4-11.4); MONOCYTES # (AUTO) 0.7 10^3/uL (0.0-1.0); NEUTROPHILS # (AUTO) 6.5 10^3/uL (1.5-6.6); NEUTROPHILS % (AUTO) 79.6 %; PLT - PLATELET COUNT 176 10^3/uL (130-450); RED BLOOD COUNT 2.79 10^6/uL (4.70-6.10); RED CELL DISTRIBUTION WIDTH 17.2 % (12.0-15.0); WHITE BLOOD COUNT 8.1 x10^3/uL (4.8-10.8)
== END 2023-10-21 15:00 | disposition home or self-care (01) ==
LOC: LAB.N 14:59
PROVIDERS: ATTEND Internal Medicine
DX: N17.9 Acute kidney failure, unspecified (principal); N18.30 Chronic kidney disease, stage 3 unspecified; I48.91 Unspecified atrial fibrillation; Z86.718 Personal history of other venous thrombosis and embolism; D68.69 Other thrombophilia
CPT/HCPCS: 36415; 80069; 83880; 85025

== ENCOUNTER 2023-10-30 20:56 | Outpatient (CLI) | payer MEDICARE, OTHER | END 2023-10-30 20:57 | disposition critical access hospital (66) | LOC: EMS 20:56 | DX: R10.84 Generalized abdominal pain (principal); R10.817 Generalized abdominal tenderness; R11.2 Nausea with vomiting, unspecified; E11.65 Type 2 diabetes mellitus with hyperglycemia | CPT/HCPCS: A0425; A0429 ==